=== PATIENT | male | born 1955 | race Caucasian/White ===

== ENCOUNTER 2022-01-31 16:33 | Emergency (ER) | payer BC ==
[~2022-01-31] VITALS: Ht 175.3 cm; Wt 113.4 kg
[2022-01-31 16:52] LABS: BASOPHILS % (AUTO) 1 % (0-10); EOSINOPHILS # (AUTO) 0.1 10^3/uL (0.0-0.3); EOSINOPHILS % (AUTO) 1 % (0-10); HEMATOCRIT 46 % (40-54); HEMOGLOBIN 15.7 g/dL (13.3-17.7); LYMPHOCYTES # (AUTO) 2.6 10^3/uL (1.0-4.0); LYMPHOCYTES % (AUTO) 33 % (12-44); MEAN CORPUSCULAR HEMOGLOBIN 30 pg (25-34); MEAN CORPUSCULAR HGB CONC 34 g/dL (32-36); MEAN CORPUSCULAR VOLUME 89 fL (80-99); MEAN PLATELET VOLUME 11.6 fL (9.0-12.2); MONOCYTES # (AUTO) 0.6 10^3/uL (0.0-1.0); MONOCYTES % (AUTO) 7 % (0-12); NEUTROPHILS # (AUTO) 4.7 10^3/uL (1.8-7.8); NEUTROPHILS % (AUTO) 58 % (42-75); PLATELET COUNT 149 10^3/uL (130-400); WHITE BLOOD COUNT 8.1 10^3/uL (4.3-11.0)
--- NOTE | 2022-01-31 16:52 | ED Neurological Problem ---
General Chief Complaint: Facial Problems Stated Complaint: POSSIBLE STROKE Source: patient (JONOJOSIAH Wills DO) History of Present Illness Date Seen by Provider: Jan 31, 2022 Time Seen by Provider: 16:39 Initial Comments PT ARRIVES VIA POV FROM HOME PT STATES THAT FOR ABOUT 2 WEEKS, HE HAS HAD LEFT FACIAL PARALYSIS AND NUMBNESS NO PAIN TO THE AREA, BUT LEFT EAR FEELS A LITTLE SORE AT TIMES NO HEARING DEFICIT NO VISION CHANGE, BUT IS UNABLE TO CLOSE HIS LEFT EYE AND IT BACON ALOT. NO DIFFICULTY SWALLOWING OR CHEWING, BUT SOMETIMES BITES THE LEFT SIDE OF HIS LIP WHEN HE EATS NO PROBLEMS TALKING NO DROOLING NO HEADACHE NO FEVER OR RECENT ILLNESS NO URI / SINUS SYMPTOMS NO GI SYMPTOMS NO BODY ACHES DID BUMP HIS LEFT CHEEK A COUPLE OF DAYS AGO, AND HAS SOME BRUISING TO THE LEFT CHEEK, BUT THIS WAS OVER A WEEK AFTER THE OTHER SYMPTOMS BEGAN HAS NOT SOUGHT CARE UNTIL TODAY (THURSDAY AFTERNOON) SYMPTOMS NO DIFFERENT IN ANY WAY DOES NOT TAKE ANY MEDICATIONS--DOES NOT GO TO . HAS HAD COVID-19 VACCINE X 2--OVER A YEAR AGO. 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 PCP: NONE (JOSIAH DE LA CRUZ DO) Allergies and Home Medications Allergies Coded Allergies: No Known Drug Allergies (Unverified , 01/31/22) Patient Home Medication List Home Medication List Reviewed: Yes (PABLITO MITCHELL) Review of Systems Review of Systems Constitutional: no symptoms reported; No chills, No diaphoresis, No dizziness, No fever, No malaise, No weakness Eyes: See HPI Ears, Nose, Mouth, Throat: see HPI Respiratory: no symptoms reported Cardiovascular: no symptoms reported Gastrointestinal: no symptoms reported Genitourinary: no symptoms reported Musculoskeletal: no symptoms reported Skin: no symptoms reported; No rash Psychiatric/Neurological: See HPI; Denies Cognitive Dysfunction, Denies Headache Endocrine: No Symptoms Reported Hematologic/Lymphatic: No Symptoms Reported (JOSIAH DE LA CRUZ DO) Past Snzcgai-Cnfgxx-Agxbsq Hx Patient Social History Tobacco Use?: No Smoking Status: Never a Smoker Smokeless Tobacco Frequency: Never a User Use of E-Cig and/or Vaping dev: No Use of E-Cig and/or Vaping Raghav: Never a User Substance use?: No Alcohol Use?: Yes (USED TO DRINK BUT NONE FOR > 20 YEARS) (JOSIAH DE LA CRUZ DO) Past Medical History Surgeries: Yes Tonsillectomy Respiratory: No Cardiac: No Neurological: No Genitourinary: No Gastrointestinal: No Musculoskeletal: No Endocrine: No HEENT: No Cancer: No Psychosocial: No Integumentary: No Blood Disorders: No (JOSIAH DE LA CRUZ DO) Physical Exam Vital Signs Vital Signs - First Documented 01/31/22 01/31/22 16:37 21:55 Temp 37.3 Pulse 68 Resp 22 B/P (MAP) 161/90 (113) Pulse Ox 96 O2 Delivery Room Air (PABLITO MITCHELL) Vital Signs Capillary Refill : (JOSIAH DE LA CRUZ DO) Height, Weight, BMI Height: '" Weight: lbs. oz. kg; BMI Method: General Appearance: WD/WN, no apparent distress, other (WALKS IN WITHOUT DIFFICULTY., DOES NOT APPEAR TO BE IN ANY DISCOMFORT OR DISTRESS. ) HEENT: PERRL/EOMI, TMs normal, pharynx normal, other (LEFT SIDE FACIAL PARALYSIS WITH FOREHEAD INVOLVEMENT. UNABLE TO COMPLETELY CLOSE LEFT EYE. DECREASED SENSATION TO LEFT SIDE OF FACE. NO RASH. DOES HAVE SOME OLD FAINT BRUISING BELOW LEFT EYE; RIGHT TM SCLEROTIC, LEFT TM OBSCURED BY CERUMEN. NO TENDERNESS TO EAR OR ANY ERYTHEMA OR SWELLING TO EAR. NO MASTOID TENDERNESS OR SWELLING OR ERYTHEMA. SLIGHT RIGHT SIDED TONGUE DEVIATION) Neck: non-tender, full range of motion, supple, normal inspection; No carotid bruit Respiratory: normal breath sounds, no respiratory distress, no accessory muscle use Cardiovascular: normal peripheral pulses, regular rate, rhythm, no edema, no JVD, no murmur Gastrointestinal: non tender, soft Back: normal inspection Extremities: normal range of motion, non-tender, normal inspection, no pedal edema, no calf tenderness, normal capillary refill Neurologic/Psychiatric: alert, normal mood/affect, oriented x 3; No abnormal cerebellar tests, No abnormal gait, No aphasia, No EOM palsy; facial droop, motor weakness, sensory deficit, other (ENTIRE LEFT SIDE OF FACE, INCLUDING FOREHEAD WITH PARALYSIS AND DECREASED SENSATION. ) Crainal Nerves: normal hearing, normal speech, PERRL Coordination/Gait: normal finger to nose, normal gait, negative Romberg's sign Motor/Sensory: no pronator drift, other (EXTREMITIES ARE ALL WNL) Skin: normal color, warm/dry, ecchymosis; No rash (JOSIAH DE LA CRUZ DO) Progress/Results/Core Measures Results/Orders Lab Results Laboratory Tests Test 01/31/22 16:39 01/31/22 16:42 01/31/22 16:45 Range/Units Glucometer 98 70-110 MG/DL White Blood Count 8.1 4.3-11.0 10^3/uL Red Blood Count 5.21 4.30-5.52 10^6/uL Hemoglobin 15.7 13.3-17.7 g/dL Hematocrit 46 40-54 % Mean Corpuscular Volume 89 80-99 fL Mean Corpuscular Hemoglobin 30 25-34 pg Mean Corpuscular Hemoglobin Concent 34 32-36 g/dL Red Cell Distribution Width 12.8 10.0-14.5 % Platelet Count 149 130-400 10^3/uL Mean Platelet Volume 11.6 9.0-12.2 fL Immature Granulocyte % (Auto) 0 % Neutrophils (%) (Auto) 58 42-75 % Lymphocytes (%) (Auto) 33 12-44 % Monocytes (%) (Auto) 7 0-12 % Eosinophils (%) (Auto) 1 0-10 % Basophils (%) (Auto) 1 0-10 % Neutrophils # (Auto) 4.7 1.8-7.8 10^3/uL Lymphocytes # (Auto) 2.6 1.0-4.0 10^3/uL Monocytes # (Auto) 0.6 0.0-1.0 10^3/uL Eosinophils # (Auto) 0.1 0.0-0.3 10^3/uL Basophils # (Auto) 0.0 0.0-0.1 10^3/uL Immature Granulocyte # (Auto) 0.0 0.0-0.1 10^3/uL Erythrocyte Sedimentation Rate 5 0-30 MM/HR Prothrombin Time 13.5 12.2-14.7 SEC INR Comment 1.0 0.8-1.4 Activated Partial Thromboplast Time 30 24-35 SEC D-Dimer 0.28 0.00-0.49 UG/ML Sodium Level 139 135-145 MMOL/L Potassium Level 4.0 3.6-5.0 MMOL/L Chloride Level 104 98-107 MMOL/L Carbon Dioxide Level 27 21-32 MMOL/L Anion Gap 8 5-14 MMOL/L Blood Urea Nitrogen 20 H 7-18 MG/DL Creatinine 0.92 0.60-1.30 MG/DL Estimat Glomerular Filtration Rate 92 BUN/Creatinine Ratio 22 Glucose Level 100 70-105 MG/DL Calcium Level 9.4 8.5-10.1 MG/DL Corrected Calcium 9.2 8.5-10.1 MG/DL Magnesium Level 2.4 1.6-2.4 MG/DL Total Bilirubin 1.2 H 0.1-1.0 MG/DL Aspartate Amino Transf (AST/SGOT) 40 H 5-34 U/L Alanine Aminotransferase (ALT/SGPT) 62 H 0-55 U/L Alkaline Phosphatase 81 40-136 U/L C-Reactive Protein High Sensitivity 0.21 0.00-0.50 MG/DL Total Protein 7.4 6.4-8.2 GM/DL Albumin 4.2 3.2-4.5 GM/DL Free Thyroxine 0.78 0.70-1.48 NG/DL TSH [place] Testing 6.23 H 0.35-4.94 UIU/ML SARS-CoV-2 RNA (RT-PCR) Not Detected Not Detecte (PABLITO MITCHELL) Medications Given in ED Current Medications Medications Dose Ordered Sig/Car Route Start Time Stop Time Status Last Admin Dose Admin Aspirin 324 mg ONCE ONCE PO 01/31/22 18:45 01/31/22 18:46 DC 01/31/22 18:56 324 MG Iohexol 150 ml ONCE ONCE IV 01/31/22 18:15 01/31/22 18:16 DC 01/31/22 18:15 150 ML (PABLITO MITCHELL) Vital Signs/I&O 01/31/22 01/31/22 16:37 21:55 Temp 37.3 Pulse 68 64 Resp 22 20 B/P (MAP) 161/90 (113) 170/82 Pulse Ox 96 96 O2 Delivery Room Air (PABLITO MITCHELL) Progress Progress Note : Progress Note NO STROKE ACTIVATION SYMPTOMS ONGOING FOR ALMOST 2 WEEKS AND ARE NOT WORSENING. 1800--CARE TURNED OVER TO DR. MITCHELL, CT ANGIOGRAM HEAD/NECK PENDING. (JOSIAH DE LA CRUZ DO) Initial ECG Impression Date: Jan 31, 2022 Initial ECG Impression Time: 16:51 Initial ECG Rate: 67 Initial ECG Rhythm: Normal Sinus (JOSIAH DE LA CRUZ DO) Diagnostic Imaging Comments CT SCANS--PER RADIOLOGIST REPORTS AT 1717 CT HEAD-- FINDINGS: There is soft tissue prominence in the right scalp posteriorly on axial image 38. This may reflect a soft tissue contusion or small hematoma. Recommend correlation clinically. There is no identified skull fracture. There is nonspecific partial opacification within the left mastoid air cells. The ventricles and cerebral spinal fluid spaces are of normal size and configuration for the patient's age. There is no mass effect or midline shift. There is no acute intracranial hemorrhage. There is no abnormal extra-axial fluid collection. IMPRESSION: 1. No identified acute intracanal abnormality. 2. Soft tissue prominence in the right scapula posteriorly which may reflect a soft tissue contusion or hematoma. Recommend correlation. CT MAXILLOFACIALS--FINDINGS: No fracture within the nasal bones, osseous nasal septum or anterior nasal spine. No fracture of the orbits. The zygomatic arches are intact. Maxillary sinus sherman and pterygoid plates are intact. Temporomandibular joints are normal in alignment. No mandibular fracture. Globes are symmetric without rupture. No retrobulbar hematoma. Visualized portions of the aorta are widely patent. IMPRESSION: 1. No fracture of the midface or mandible. Reviewed: Reviewed by Me (JOSIAH DE LA CRUZ DO) Diagonstic Imaging: CT Plain Films/CT/US/NM/MRI: head Diagonstic Imaging: CT (angio) Plain Films/CT/US/NM/MRI: head Comments [facility] [place] NAME: ROB PERRY [facility] REC#: [id number] PT STATUS: REG ER : 1955 PHYSICIAN: JOSIAH DE LA CRUZ DO ADMIT DATE: 01/31/22/ER Signed Date of Exam:01/31/22 CT ANGIO HEAD/NECK PROCEDURE: CT angiography of the head and CT angiography of the neck with and without contrast. TECHNIQUE: Contiguous noncontrast images were obtained from the skull base through the vertex. After intravenous contrast administration, helical CT angiography of the neck was performed. Source data was reformatted into 3D MIP projections. Delayed post contrast acquisition was also obtained. Auto Exposure Controls were utilized during the CT exam to meet ALARA standards for radiation dose reduction. INDICATION: Left-sided facial paralysis. Concern for acute ischemia. COMPARISON: CT head performed the same date. FINDINGS: CTA Neck: The visualized portions of the aortic arch demonstrate no evidence of aneurysm or dissection. There is conventional branching pattern of the great vessels of the aorta. The brachiocephalic artery is normal in course and caliber. The right and left common carotid origins are unremarkable. The origin of the left subclavian artery is patent. The common carotid arteries and internal carotid arteries demonstrate a tortuous course. There is calcified atherosclerotic plaque in the bilateral carotid bulbs and proximal internal carotid arteries without flow-limiting stenosis. No evidence of dissection in the carotid systems. The external carotid arteries are patent and unremarkable. The left vertebral artery is dominant. The origin of the right vertebral artery is seen and is unremarkable. The origin of the left vertebral artery is seen and is unremarkable. There is no focal stenosis seen within the neck. There is no dissection. The vertebral arteries are well visualized to up to the level of the basilar artery. The osseous structures of the cervical spine are unremarkable. Scarring is seen in the left lung apex. CTA brain: Atherosclerotic plaque is seen in the sherman of the bilateral terminal internal carotid arteries without significant stenosis. No stenosis is seen in the bilateral anterior, middle, and posterior cerebral arteries. No evidence of aneurysm the [place]. In the posterior circulation, both of the vertebral arteries demonstrate normal opacification. Both the right and left PICA arteries are identified. The basilar artery is normal in course and caliber. The terminal branch vessels including the superior cerebellar arteries unremarkable. IMPRESSION: 1. No stenosis or aneurysm in the [place]. No large vessel occlusion. 2. No stenosis or dissection the bilateral carotid and vertebral arteries. Dictated by: Dictated on workstation # [id number] Dict: 01/31/22 183 Trans: 01/31/221842 AS6 [id number] Interpreted by: CLEVELAND ROACH DO Electronically signed by: CLEVELAND ROACH DO 01/31/221842 Reviewed: Reviewed by Dc (PABLITO MITCHELL) Departure Communication (Admissions) 1718--CALLING [facility], PAGING NEUROLOGIST SOIL TECHNOLOGIST. CT IMAGES BEING CLOUDED TO [facility]. 175--SPOKE WITH DR. FERRER, STROKE NEUROLOGIST, HE HAS REVIEWED CT IMAGES, HE ADVISES CT ANGIOGRAM OF HEAD AND NECK, AND ALSO MRI. ADVISED HIM THAT MRI IS NOT AVAILABLE HERE AT THIS HOUR ( THURSDAY NIGHT AFTER 5 PM) AND WILL NOT BE ABLE TO OBTAIN ONE UNTIL THURSDAY. WILL SEND CT ANGIOGRAM HEAD/NECK IMAGES TO HIM AND CONTACT HIM WHEN REPORTS ARE BACK. HE ADVISES TO GIVE PT 324 MG ASPIRIN NOW. (JOSIAH DE LA CRUZ DO) Impression Primary Impression: Facial paralysis on left side Additional Impression: CVA (cerebral vascular accident) Qualified Codes: I63.9 - Cerebral infarction, unspecified Disposition: XFER SHT-TRM HOSP Condition: Stable Transfer Transfer Reason: Exceeds level of care Time Spoke to Accepting Phy: 21:10 Transfer Progress Notes Discussed the case with Dr. Ferrer, neurology on-call at [facility]. He feels that since there is more than 1 cranial nerve involved he needs an MRI before Thursday. He agrees to accept the patient in transfer and they gave us a bed number [id number]. Patient is agreeable to go by ambulance. Transfer Facility: [facility] Method of Transfer: EMS ([facility]) (PABLITO MITCHELL) Departure-Patient Inst. Referrals: NO,LOCAL PHYSICIAN (PCP/Family) Primary Care Physician JOSIAH DE LA CRUZ DO Jan 31, 2022 16:52 PABLITO MITCHELL Jan 31, 2022 20:55
[2022-01-31 17:01] LABS: ALBUMIN 4.2 GM/DL (3.2-4.5)
[2022-01-31 17:02] LABS: CALCIUM 9.4 MG/DL (8.5-10.1)
[2022-01-31 17:03] LABS: TOTAL PROTEIN 7.4 GM/DL (6.4-8.2)
[2022-01-31 17:04] LABS: FIBRIN DEGRADATION PRODUCTS 0.28 UG/ML (0.00-0.49); PROTHROMBIN TIME PATIENT 13.5 SEC (12.2-14.7)
[2022-01-31 17:05] LABS: BILIRUBIN,TOTAL 1.2 MG/DL (0.1-1.0)
[2022-01-31 17:07] LABS: CREATININE SERUM 0.92 MG/DL (0.60-1.30); ERYTHROCYTE SEDIMENTATION RATE 5 MM/HR (0-30)
[2022-01-31 17:10] LABS: MAGNESIUM 2.4 MG/DL (1.6-2.4)
--- NOTE | 2022-01-31 17:15 | Diagnostic Imaging Report ---
PROCEDURE: CT head wo r/o stroke. TECHNIQUE: Multiple contiguous axial images were obtained through the brain without the use of intravenous contrast. Auto Exposure Controls were utilized during the CT exam to meet ALARA standards for radiation dose reduction. DATE: January 31, 2022. COMPARISON: None. INDICATION: 66-year-old male, left-sided facial droop. FINDINGS: There is soft tissue prominence in the right scalp posteriorly on axial image 38. This may reflect a soft tissue contusion or small hematoma. Recommend correlation clinically. There is no identified skull fracture. There is nonspecific partial opacification within the left mastoid air cells. The ventricles and cerebral spinal fluid spaces are of normal size and configuration for the patient's age. There is no mass effect or midline shift. There is no acute intracranial hemorrhage. There is no abnormal extra-axial fluid collection. IMPRESSION: 1. No identified acute intracanal abnormality. 2. Soft tissue prominence in the right scapula posteriorly which may reflect a soft tissue contusion or hematoma. Recommend correlation. Dictated by: Dictated on workstation # [id number]
--- NOTE | 2022-01-31 17:15 | Diagnostic Imaging Report ---
PROCEDURE: CT maxillofacial without contrast. TECHNIQUE: Multiple contiguous axial images were obtained through the facial bones without the use of intravenous contrast. Auto Exposure Controls were utilized during the CT exam to meet ALARA standards for radiation dose reduction. INDICATION: Facial trauma COMPARISON: CT head performed concurrently. FINDINGS: No fracture within the nasal bones, osseous nasal septum or anterior nasal spine. No fracture of the orbits. The zygomatic arches are intact. Maxillary sinus sherman and pterygoid plates are intact. Temporomandibular joints are normal in alignment. No mandibular fracture. Globes are symmetric without rupture. No retrobulbar hematoma. Visualized portions of the aorta are widely patent. IMPRESSION: 1. No fracture of the midface or mandible. Dictated by: Dictated on workstation # [id number]
[2022-01-31 17:30] LABS: TSH (THYROID ANALYZER) 6.23 UIU/ML (0.35-4.94)
[2022-01-31] MEDS ORDERED: CATHETER FLUSH 10 ML SYR IV PRN (18:15)
[2022-01-31] MEDS ORDERED: NS 100 ML (IVPB) BAG IV ONE (18:15)
[2022-01-31] MEDS ORDERED: IOHEXOL 350 MG/ML 150 ML (OMNIPAQUE 350) VIAL IV ONE (18:15)
[2022-01-31] MEDS ORDERED: HOLD METFORMIN - RECEIVED CONTRAST 20 ML VIAL IV SCH (18:15)
[2022-01-31 18:28] LABS: FREE T4 (FREE THYROXINE) 0.78 NG/DL (0.70-1.48)
--- NOTE | 2022-01-31 18:39 | Diagnostic Imaging Report ---
TECHNIQUE: CT cerebral perfusion study was performed using a dual slab technique. Post processing was performed using the RAPID software. 150 mL of Omnipaque 350 was administered. REASON FOR EXAM: Left-sided facial paralysis. COMPARISON: CTA head and neck performed the same date. FINDINGS: There is no significant motion artifact. The arterial inflow and venous outflow graphs are adequate. The volume of parenchyma demonstrating cerebral blood flow of less than 30% is equal to 0 mL. The volume of parenchyma showing a Tmax greater than 6 seconds is 0 mL. Parenchyma are demonstrated Tmax greater than 8 seconds equals 0 mL, and greater than 10 seconds 0 mL. No evidence of core infarct or penumbra-like pattern. IMPRESSION: 1. No CT perfusion evidence of core infarct or penumbra-like pattern. Dictated by: Dictated on workstation # [id number]
--- NOTE | 2022-01-31 18:41 | Diagnostic Imaging Report ---
PROCEDURE: CT angiography of the head and CT angiography of the neck with and without contrast. TECHNIQUE: Contiguous noncontrast images were obtained from the skull base through the vertex. After intravenous contrast administration, helical CT angiography of the neck was performed. Source data was reformatted into 3D MIP projections. Delayed post contrast acquisition was also obtained. Auto Exposure Controls were utilized during the CT exam to meet ALARA standards for radiation dose reduction. INDICATION: Left-sided facial paralysis. Concern for acute ischemia. COMPARISON: CT head performed the same date. FINDINGS: CTA Neck: The visualized portions of the aortic arch demonstrate no evidence of aneurysm or dissection. There is conventional branching pattern of the great vessels of the aorta. The brachiocephalic artery is normal in course and caliber. The right and left common carotid origins are unremarkable. The origin of the left subclavian artery is patent. The common carotid arteries and internal carotid arteries demonstrate a tortuous course. There is calcified atherosclerotic plaque in the bilateral carotid bulbs and proximal internal carotid arteries without flow-limiting stenosis. No evidence of dissection in the carotid systems. The external carotid arteries are patent and unremarkable. The left vertebral artery is dominant. The origin of the right vertebral artery is seen and is unremarkable. The origin of the left vertebral artery is seen and is unremarkable. There is no focal stenosis seen within the neck. There is no dissection. The vertebral arteries are well visualized to up to the level of the basilar artery. The osseous structures of the cervical spine are unremarkable. Scarring is seen in the left lung apex. CTA brain: Atherosclerotic plaque is seen in the sherman of the bilateral terminal internal carotid arteries without significant stenosis. No stenosis is seen in the bilateral anterior, middle, and posterior cerebral arteries. No evidence of aneurysm the [place]. In the posterior circulation, both of the vertebral arteries demonstrate normal opacification. Both the right and left PICA arteries are identified. The basilar artery is normal in course and caliber. The terminal branch vessels including the superior cerebellar arteries unremarkable. IMPRESSION: 1. No stenosis or aneurysm in the [place]. No large vessel occlusion. 2. No stenosis or dissection the bilateral carotid and vertebral arteries. Dictated by: Dictated on workstation # [id number]
[2022-01-31] MEDS ORDERED: ASPIRIN 81 MG CHEW (CHILDREN'S ASA) PO ONE (18:45)
[2022-01-31 21:55] VITALS: BP 170/82
== END 2022-01-31 22:00 | disposition short-term general hospital (02) ==
LOC: EDUNIT# 16:33 → ER 16:35
DX: I63.9 Cerebral infarction, unspecified (principal); G51.0 Bell's palsy; Z20.822 Contact with and (suspected) exposure to COVID-19
CPT/HCPCS: 0042T; 70450; 70486; 70496; 70498; 80053; 82947; 83735; 84439; 84443; 85025; 85379; 85610; 85652; 85730; 86141; 87636; 93041; 99285; 36415